=== PATIENT | female | born 2000 | race African-American/Black ===

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

== ENCOUNTER 2020-03-07 11:10 | Day surgery (SDC) | payer OTHER ==
[2020-03-07 12:01] VITALS: BMI 31.4
--- NOTE | 2020-03-07 12:10 | PDOC.FPRHP ---
- History of Present Illness Chief Complaint: Elevated Blood Pressure, Vision changes History of Present Illness: Pt is a 19 yo @ 29.3 wks (JOE 05/19/2020) by 12.6 wk US who presents due to elevated blood pressure at home - Allergies/Adverse Reactions Allergies Allergy/AdvReac Type Severity Reaction Status Date / Time No Known Allergies Allergy Verified 03/07/20 11:52 - Home Medications Medication Instructions Recorded Confirmed Type Ferrous Sulfate [Feosol] 325 mg PO BID-WM #60 tab 10/05/18 03/07/20 Rx Vitamin 1 tablet PO DAILY #30 tab 10/05/18 03/07/20 Rx Aspirin [Ecotrin Low Strength] 81 mg PO DAILY 03/07/20 03/07/20 History - History PMHx: Fibroadenoma of bilateral breasts PSHx: Bilateral Lumpectomy FHx: Non-contributory Social: No alcohol, tobacco, or recreational drugs - Review of Systems Eyes: reports: vision changes Neurological: reports: other (headache) - Vital signs BP: 137/82 HR: 98 RR: [] Tmax: 98.0 Pox: []% on [] Wt: 96.615 kg FMR H&P: Results - Labs Result Diagrams: 03/07/20 12:52 03/07/20 12:52 FMR H&P: Upper Level - Plan Date/Time: 03/07/20 1210 I, [], have evaluated this patient and agree with findings/plan as outlined by merchandising internship resident. Pertinent changes/additions are listed here.
[2020-03-07] MEDS ORDERED: hydrALAZINE 20 MG/ML VIAL SLOW IVP PRN (12:22)
[2020-03-07 13:07] LABS: #Lymphocytes 1.8 thou/uL (1.20-3.40); #Monocytes 0.7 thou/uL (0.11-0.59); #Neutrophils 6.3 thou/uL (1.40-6.50); %Basophils 0.1 % (0.0-1.0); %Eosinophils 0.4 % (0.0-10.0); %Lymphocytes 20.7 % (28.0-48.0); %Monocytes 7.3 % (0.0-4.0); %Neutrophils 71.6 % (31.0-61.0); Hemoglobin 9.7 g/dL (12.0-16.0); Mean Corpuscular HGB CONC 34.3 g/dL (32.0-36.0); Mean Corpuscular Hemoglobin 28.6 pg (25.0-35.0); Mean Corpuscular Volume 83.4 fL (78.0-98.0); Mean Platelet Volume 8.3 fL (7.4-10.4); Platelet Count 256 thou/uL (130-400); RBC Distribution Width 11.8 % (11.5-14.5); Red Blood Cell (RBC) Count 3.38 mill/uL (4.00-5.20); White Blood Cell (WBC) Count 8.8 thou/uL (4.8-10.8)
[2020-03-07 13:24] LABS: Anion Gap 13 mmol/L (10-20); BUN (Urea Nitrogen) 4 mg/dL (7.0-18.7); Calc. Creatinine Clearance 217 mL/min (70-130); Carbon Dioxide 22 mmol/L (22-29); Chloride 104 mmol/L (98-107); Estimated GFR-MDRD Greater than 90; Potassium 3.5 mmol/L (3.5-5.1); Sodium 135 mmol/L (136-145)
[2020-03-07 13:25] LABS: ALT (SGPT) Less than 7 U/L (8-55); AST (SGOT) 11 U/L (5-34); Albumin 3.4 g/dL (3.5-5.0); Alkaline Phosphatase 69 U/L (40-100); Bilirubin, Total Less than 0.2 mg/dL (0.2-1.2); Calcium 8.3 mg/dL (7.8-10.44); Globulin 3.8 g/dL (2.4-3.5); Glucose 76 mg/dL (70-105); Iron 27 ug/dL (50-170); Iron Binding Capacity, Total 498 mcg/dL (265-497); Protein, Total 7.2 g/dL (6.0-8.3)
--- NOTE | 2020-03-07 13:36 | ULT ---
Obstetric sonogram limited Sonographic biophysical profile score HISTORY: Preeclampsia. FINDINGS: Single intrauterine gestation in cephalic presentation. Cervix is closed and 4.9 cm. Grade 1 placenta is posterior. No evidence of previa. Heart motion at 131 bpm. Amniotic fluid index 7.5. Good tone, gross movements, and breathing movements were demonstrated at sonography. IMPRESSION : Sonographic biophysical profile score 8/8.
--- NOTE | 2020-03-07 15:11 | PDOC.FPROB ---
FMR OB H&P: HPI - History of Present Illness Chief Complaint: elevated bp, vision changes History of Present Illness: Pt is a 19 yo @ 29.3 wks (JOE 05/19/2020) by 12.6 wk US who presents due to elevated blood pressure at home combined with white spots/flashes that started this morning. She states the flashes are intermittent. Denies chest pain, shortness of breath, abdominal pain, urinary problems, edema, vaginal discharge, vaginal bleeding, or LOF. States she sometimes gets headaches, last one was 1 week ago. Patient states her home pressures with her chronic HTN are usually 130s-140s systolic with a few in the 160s. Primary Care Physician: ANUP Richardson FMR OB H&P: Current - Care : 2 Para: 1001 Gestational age: 29.3 weeks Due date: 05/20/2020 Dating Criteria: 12.5week - OB Labs Blood type: B RH: positive Antibody Screen: negative HIV: negative RPR: negative HepBsAg: negative Rubella: immune Gonorrhea: negative Chlamydia: negative 1 hour gtt: 2 hr: 75/128/128 H&H: 8.9/27.5 Platelets: 269 Additional labs: Hep C neg - First Trimester Ultrasound First trimester: LMP c/w 12.5 week sono - Anatomy Survey Anatomy survey: Anatmoy MF @22.5 weeks - WNLs; 41% EFW FMR OB H&P: History - Past Medical History PMH: cHTN, PreE in previous , Hx Chlamydia during , Short Interval between pregnancies - OB History OB History: Last 38 weeks , PreE - CANDLE MOLDER HAND History CANDLE MOLDER HAND History: none - Surgical History Sx History: Fibroadenoma removed 2 years ago, L breast - Social History Social History: no smoking, alcohol or drug use - Family History Family History: HTN FMR OB H&P: Medications - Current Home Medications: Medication Instructions Recorded Confirmed Type Ferrous Sulfate [Feosol] 325 mg PO BID-WM #60 tab 10/05/18 03/07/20 Rx Vitamin 1 tablet PO DAILY #30 tab 10/05/18 03/07/20 Rx Aspirin [Ecotrin Low Strength] 81 mg PO DAILY 03/07/20 03/07/20 History Allergies/Adverse Reactions: Allergies Allergy/AdvReac Type Severity Reaction Status Date / Time No Known Allergies Allergy Verified 03/07/20 11:52 FMR OB H&P: ROS - Review of Systems General: denies: fever/chills, weight/appetite/sleep changes Eyes: reports: vision changes, floaters. denies: eye pain ENT: denies: nasal congestion, rhinorrhea Cardiovascular: denies: chest pain, palpitation Respiratory: denies: cough, shortness of breath Gastrointestinal: denies: abdominal pain, indigestion Genitourinary (Female): denies: incontinence, dysuria Musculoskeletal: denies: pain, stiffness Neurologic: denies: numbness, syncope Integumentary: denies: itching, rash Breast: denies: lumps, bumps Endocrine: denies: cold intolerance, heat intolerance Hematologic/Lymphatic: denies: prolonged or excessive bleeding, enlarged lymph nodes Psychological: denies: depression, anxiety FMR OB H&P: Vital Signs - Maternal Vital signs: 129/82mmhg, FMR OB H&P: Physical Exam - Physical Exam General: NAD HEENT: normocephalic and atraumatic, PERRLA, EOMI Neck: supple, FROM Breast: symmetric, non-tender Heart: RRR, normal S1/S2, no murmurs/rubs/gallops General: CTAB, no respiratory distress, no wheezing Abdomen: soft, gravid, non-tender Musculoskeletal: normal gait and station, FROM in all four extremities Neurological: sensation to pain,touch and proprioception grossly normal, no focal deficit Skin: no rash, good tugor Lymphatic: no unusual bruising or bleeding, no purpura Psychiatric: intact recent and remote memory, good judgement and insight, normal mood and affect FMR OB H&P: Results - Labs Lab results: Laboratory Results - last 24 hr 03/07/20 03/07/20 03/07/20 12:52 12:52 12:52 WBC 8.8 RBC 3.38 L Hgb 9.7 L Hct 28.2 L MCV 83.4 MCH 28.6 MCHC 34.3 RDW 11.8 Plt Count 256 MPV 8.3 Neutrophils % 71.6 H Lymphocytes % 20.7 L Monocytes % 7.3 H Eosinophils % 0.4 Basophils % 0.1 Neutrophils # 6.3 Lymphocytes # 1.8 Monocytes # 0.7 H Eosinophils # 0.0 Basophils # 0.0 Sodium 135 L Potassium 3.5 Chloride 104 Carbon Dioxide 22 Anion Gap 13 BUN 4 L Creatinine 0.63 Estimated GFR (MDRD) Greater than 90 Glucose 76 Calcium 8.3 Iron 26 L 27 L TIBC 498 H % Saturation 5 L Ferritin Total Bilirubin Less than 0.2 L AST 11 ALT Less than 7 L Alkaline Phosphatase 69 Serum Total Protein 7.2 Albumin 3.4 L Globulin 3.8 H Albumin/Globulin Ratio 0.9 L U Random Total Protein Urine Creatinine 03/07/20 03/07/20 03/07/20 12:53 13:36 13:36 WBC RBC Hgb Hct MCV MCH MCHC RDW Plt Count MPV Neutrophils % Lymphocytes % Monocytes % Eosinophils % Basophils % Neutrophils # Lymphocytes # Monocytes # Eosinophils # Basophils # Sodium Potassium Chloride Carbon Dioxide Anion Gap BUN Creatinine Estimated GFR (MDRD) Glucose Calcium Iron TIBC % Saturation Ferritin 2.35 L Total Bilirubin AST ALT Alkaline Phosphatase Serum Total Protein Albumin Globulin Albumin/Globulin Ratio U Random Total Protein Less than 10 Urine Creatinine 67.57 FMR OB H&P: A/P Disposition: Pt is a 19 yo @ 29.3 wks (JOE 05/19/2020) by 12.6 wk US who presents due to elevated blood pressure at home combined with vision changes. Chronic HTN r/o PreEclampsia Hx of PreE in first - Home pressure today 168/84, here pressures in 130s with two in the 140s systolic - Urine Pr/Cr negative - CMP wnl - vision changes improved, no other severe features - d/c with continued home BP log and follow up within next week, strict ED return precautions - continue aspirin Third Trimester - reassuring FHTs - BPP 11/21 - MFM recommended f/u as clinically indicated Iron Def Anemia Hgb 9.7 Iron studies indicate iron def anemia - recommend setting up outpatient iron infusion - continue iron PO Hx Chlamydia 1st trimester - NICOLE negative Discussion: Date/Time: 03/07/20 1510 This H&P was discussed with Dr. Weston who agrees with the above documentation and plan. Addendum - Attending - Attending Attestation Date/Time: 03/08/20 0836 I personally evaluated the patient and discussed the management with Dr. Rivas. I agree with the History, Examination, Assessment and Plan documented above with any addition or exceptions noted below. Normal labs. Normal BP. D/C home.
== END 2020-03-07 14:28 | disposition home health service (06) ==
LOC: L&D/OP 11:10
PROVIDERS: ATTEND Family Medicine
DX: O10.913 Unspecified pre-existing hypertension complicating pregnancy, third trimester (principal); O99.891 Other specified diseases and conditions complicating pregnancy; H53.8 Other visual disturbances; O99.013 Anemia complicating pregnancy, third trimester; D50.9 Iron deficiency anemia, unspecified; Z3A.29 29 weeks gestation of pregnancy; Z79.82 Long term (current) use of aspirin; Z86.19 Personal history of other infectious and parasitic diseases
CPT/HCPCS: 36415; 76819; 80053; 82570; 82728; 83540; 83550; 84156; 85025; 99284

== ENCOUNTER 2020-03-30 13:51 | Day surgery (SDC) | payer OTHER ==
[2020-03-30 14:13] VITALS: BMI 32.5
--- NOTE | 2020-03-30 14:55 | PDOC.FPROB ---
FMR OB H&P: HPI - History of Present Illness Chief Complaint: elevate BP History of Present Illness: 19yo @ 32.5wks w/ hx of cHTN and pre-E in prior presents from clinic due to elevated BP. At clinic her pressures were 164/89 and 153/113. Pt takes her BP at home and states it has been 140s-150s/ 80s-90s. Denies GARSIA, change in vision, dizziness, N/V, edema, CP, SOB. Admits RUQ pain on occasion, stating this is where she feels baby kick her most often. Has been taking her daily medications: aspirin, iron, PNV. +FM, denies LOF, vaginal bleeding, vaginal discharge. Primary Care Physician: PEEWEE Richardson FMR OB H&P: Current - Care : 2 Para: 1 Gestational age: 32.5 Due date: 05/20/20 Dating Criteria: LMP c/w 12.5wk sono Course/Complications: cHTN, KYLIE, short IPI - OB Labs Blood type: B RH: positive Antibody Screen: negative HIV: negative RPR: negative HepBsAg: negative Rubella: immune Gonorrhea: negative Chlamydia: negative 1 hour gtt: 2 hr: 75/128/128 H&H: 9.1/26.5 on 03/22 Platelets: 280 on 03/22 FMR OB H&P: History - Past Medical History PMH: cHTN, KYLIE, preE in previous preg, short IPI - OB History OB History: @ 38wks, preE - CAPSULE INSPECTOR History CAPSULE INSPECTOR History: none - Surgical History Sx History: fibroadenoma removed 2 years ago, L breast - Social History Social History: no T/A/D - Family History Family History: mom: as above, all other negative FMR OB H&P: Medications - Current Home Medications: Medication Instructions Recorded Confirmed Type Ferrous Sulfate [Feosol] 325 mg PO BID-WM #60 tab 10/05/18 03/07/20 Rx Vitamin 1 tablet PO DAILY #30 tab 10/05/18 03/07/20 Rx Aspirin [Ecotrin Low Strength] 81 mg PO DAILY 03/07/20 03/07/20 History Allergies/Adverse Reactions: Allergies Allergy/AdvReac Type Severity Reaction Status Date / Time No Known Allergies Allergy Verified 03/30/20 14:14 FMR OB H&P: ROS - Review of Systems General: denies: fever/chills Eyes: denies: vision changes ENT: denies: nasal congestion, sore throat Cardiovascular: denies: chest pain, edema Respiratory: denies: cough, congestion, shortness of breath Gastrointestinal: denies: abdominal pain, nausea, vomiting Genitourinary (Female): denies: dysuria, vaginal discharge, vaginal bleeding, contractions Musculoskeletal: denies: pain, swelling Neurologic: denies: syncope, headache Integumentary: denies: rash Endocrine: denies: polyuria Hematologic/Lymphatic: denies: prolonged or excessive bleeding FMR OB H&P: Vital Signs - Maternal Vital signs: BP 138/88, HR 81 - Heart Tones Baseline: 140 Variability: moderate Acceleration: present Deceleration: absent Category: category 1 [place] contractions every: none FMR OB H&P: Physical Exam - Physical Exam General: NAD, awake, alert and oriented HEENT: normocephalic and atraumatic, EOMI, no scleral icterus, grossly normal vision, grossly normal hearing Neck: supple, FROM Heart: RRR, normal S1/S2, no murmurs/rubs/gallops, pulses present, no edema General: CTAB, no respiratory distress, good air movement Abdomen: soft, gravid, non-tender Musculoskeletal: pulses present, no atrophy Neurological: DTR +1, no clonus, no focal deficit Skin: no rash, capillary refill <2 seconds, no jaundice Lymphatic: no unusual bruising or bleeding Psychiatric: intact recent and remote memory, normal mood and affect FMR OB H&P: A/P Discussion: Date/Time: 03/30/20 1451 Pt is a 19 yo @ 32.5 wks by 12.5 wk US who presents due to elevated blood pressure at the clinic cHTN r/o PreEclampsia - hx of preE in prior - BP in clinic 164/89, 153/113 - BP here 138/88, asymptomatic - Urine Pr/Cr: Protein <10 - CMP LFT and BUN/Cr WNL - US: BPP 8/8, COLLEEN 6.3, vertex 32.2wks, HR 157 -radiologist read US as oligohydramnios. He stated that he uses a nomogram that uses gestational age and COLLEEN. According to this, the patient was less than the 5th percentile for her gestational age so she met criteria for oligo. He did not agree with ACOG definition of oligohydramnios. - continue home BP log, continue aspirin - needs outpatient f/u with mBPP next week Third Trimester - FHT: Cat 1, 140/mod dameon/+accel, no decel - continue routine outpatient f/u Iron Def Anemia - H/H - recommend setting up outpatient iron infusion- can f/u with her PCP to discuss further - continue iron PO This H&P was discussed with Dr. Arciniega and Dr. Avina who agree with the above documentation and plan. Addendum - Attending - Attending Attestation Date/Time: 03/31/20 3476 I personally evaluated the patient and discussed the management with the team. I agree with the History, Examination, Assessment and Plan documented above with any addition or exceptions noted below. No severe symptoms. After > 2 hours monitoring all BP's in 140's at worst, which is controlled for cHTN. Reassuring APT, note above reviewed about oligo. I reviewed images and SDP > 2 and I believe a couple pockets undercalled. ER warnings, follow up in clinic with repeat APT within a week, and home bp's.
[2020-03-30] MEDS ORDERED: hydrALAZINE 20 MG/ML VIAL SLOW IVP PRN (15:22)
[2020-03-30 15:45] LABS: #Monocytes 0.8 thou/uL (0.11-0.59); #Neutrophils 5.7 thou/uL (1.40-6.50); %Basophils 0.3 % (0.0-1.0); %Eosinophils 0.4 % (0.0-10.0); %Monocytes 9.6 % (0.0-4.0); %Neutrophils 66.8 % (31.0-61.0); Hemoglobin 9.2 g/dL (12.0-16.0); Mean Corpuscular HGB CONC 33.9 g/dL (32.0-36.0); Mean Corpuscular Hemoglobin 28.1 pg (25.0-35.0); Mean Corpuscular Volume 82.7 fL (78.0-98.0); Mean Platelet Volume 8.4 fL (7.4-10.4); Platelet Count 243 thou/uL (130-400); RBC Distribution Width 12.2 % (11.5-14.5); Red Blood Cell (RBC) Count 3.26 mill/uL (4.00-5.20); White Blood Cell (WBC) Count 8.5 thou/uL (4.8-10.8)
--- NOTE | 2020-03-30 15:53 | ULT ---
Please see the separately dictated, concurrently performed biophysical profile for details concerning the limited obstetrical evaluation.
--- NOTE | 2020-03-30 15:53 | ULT ---
LIMITED OBSTETRICAL ULTRASOUND FOR BIOPHYSICAL PROFILE INDICATION: Evaluate BPP and growth TECHNIQUE: Grayscale, M-mode Doppler, color Doppler and spectral Doppler images were obtained. Biophy sical profile was submitted by the critical power install technician. Imaging is focused on the clinical indication. COMPARISON: Prior exam dated March 07, 2020 GESTATION: Number of gestations: Single. Presentation: Cephalic. heart rate: 147 bpm. Placental location: Fundal and to the left Previa: No evidence for previa. Cervical length: Not visualized COLLEEN: 6.3 cm. Biophysical profile: tone: 2 out of 2. breathin out of 2 movements: 2 out of 2 Amniotic fluid level: 2 out of 2 The biparietal diameter measured 8.14 cm giving estimated gestational age of 32 weeks and 5 days (42n d percentile). The head circumference measures 29.61 cm giving estimated gestational age of 32 weeks and 5 days. (15 th percentile). The abdominal circumference measured 20.57 cm giving estimated gestational age of 32 weeks and 4 days (46 percentile). The femoral length was 6.18 cm giving estimated gestational age of 32 weeks and 0 days (21st percenti le). The estimated weight is 1978 g (32nd percentile). The average gestational age by ultrasound is 32 weeks and 2 days with estimated due date of May 23, 2020. The estimated clinical age is 32 weeks and 5 days with estimated due date of May 20, 2020. The maternal anatomy was not assessed. The uterus and adnexa were not evaluated. IMPRESSION: 1. Biophysical profile of 8 out of 8. 2. Oligohydramnios
[2020-03-30 16:13] LABS: ALT (SGPT) Less than 7 U/L (8-55); AST (SGOT) 14 U/L (5-34); Albumin 3.1 g/dL (3.5-5.0); Alkaline Phosphatase 87 U/L (40-100); Anion Gap 12 mmol/L (10-20); BUN (Urea Nitrogen) 4 mg/dL (7.0-18.7); Bilirubin, Total 0.2 mg/dL (0.2-1.2); Calc. Creatinine Clearance 214 mL/min (70-130); Calcium 8.5 mg/dL (7.8-10.44); Carbon Dioxide 23 mmol/L (22-29); Chloride 103 mmol/L (98-107); Globulin 3.7 g/dL (2.4-3.5); Glucose 82 mg/dL (70-105); Potassium 3.9 mmol/L (3.5-5.1); Protein, Total 6.8 g/dL (6.0-8.3); Sodium 134 mmol/L (136-145)
[2020-03-30 16:39] LABS: Creatinine, Urine 105.89 mg/dL (47-110); Protein, Urine Random Quant Less than 10 mg/dL (1-14)
== END 2020-03-30 17:19 | disposition home or self-care (01) ==
LOC: L&D/OP 13:51
PROVIDERS: ATTEND Emergency Medicine
DX: O10.913 Unspecified pre-existing hypertension complicating pregnancy, third trimester (principal); O99.013 Anemia complicating pregnancy, third trimester; D50.9 Iron deficiency anemia, unspecified; O41.03X0 Oligohydramnios, third trimester, not applicable or unspecified; Z3A.32 32 weeks gestation of pregnancy; Z79.899 Other long term (current) drug therapy
CPT/HCPCS: 36415; 76815; 76819; 80053; 82570; 84156; 85025; 99283

== ENCOUNTER 2020-04-28 13:05 | Inpatient (IN) | payer OTHER ==
[2020-04-28] MEDS ORDERED: hydrALAZINE 20 MG/ML VIAL SLOW IVP PRN ×2 (13:26→19:44)
--- NOTE | 2020-04-28 13:31 | PDOC.FPROB ---
FMR OB H&P: HPI - History of Present Illness Chief Complaint: high BPs Indentification: 19 yo at 36.6 wga by 12.6 week sono History of Present Illness: Patient sent from clinic because she has been having a headache x3 days and elevated BPs, higher than her usual range at 155/95. She had also missed her monitoring appointments over the last two weeks, so she was sent here for testing. Upon arrival patient is complaining of suprapubic abd ominal pain and a dull ache in her vagina. She also has been having more vaginal discharge that is kind of clear like urine but has been going on for about a month. Had increased abdominal pain last night that was intermittent and painful for about 2 hours. Primary Care Physician: PEEWEE Richardson FMR OB H&P: Current - Care : 2 Para: 1001 Gestational age: 36.6 Due date: 05/20/2020 Dating Criteria: 12 wk sono Course/Complications: chronic HTN short interval Hx of pre-eclampsia, on ASA Poor follow up in 3T Chlamydia in 1T w/ NICOLE neg - OB Labs Blood type: B RH: positive Antibody Screen: negative HIV: negative RPR: negative HepBsAg: negative Rubella: immune Gonorrhea: negative Chlamydia: positive (w/ NICOLE neg) Pap Smear: N/A 3 hour GTT: 2 hr GTT: 75/128/128 GBS: negative H&H: 9.2 on 03/30 Platelets: 243 on 03/30 Additional labs: Hgb electrophoresis Normal Hep C negative FMR OB H&P: History - Past Medical History PMH: chronic HTN - OB History OB History: x1, with preeclampsia - C 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 - Family History Family History: 2 siblings: noncontributory FMR OB H&P: Medications - Current Home Medications: Medication Instructions Recorded Confirmed Type Ferrous Sulfate [Feosol] 325 mg PO BID-WM #60 tab 10/05/18 04/28/20 Rx Vitamin 1 tablet PO DAILY #30 tab 10/05/18 04/28/20 Rx Aspirin [Ecotrin Low Strength] 81 mg PO DAILY 03/07/20 04/28/20 History Allergies/Adverse Reactions: Allergies Allergy/AdvReac Type Severity Reaction Status Date / Time No Known Allergies Allergy Verified 04/28/20 13:35 FMR OB H&P: ROS - Review of Systems General: denies: fever/chills, fatigue Eyes: denies: vision changes, scotomas, floaters ENT: denies: rhinorrhea, sore throat Cardiovascular: denies: chest pain, edema Respiratory: denies: cough, shortness of breath Gastrointestinal: reports: abdominal pain, cramping. denies: nausea, vomiting Genitourinary (Female): reports: vaginal discharge, vaginal pressure. denies: dysuria, hematuria, vaginal bleeding, contractions Musculoskeletal: denies: pain, swelling Neurologic: denies: syncope, weakness Integumentary: denies: itching, rash Hematologic/Lymphatic: denies: prolonged or excessive bleeding Psychological: denies: depression, anxiety FMR OB H&P: Vital Signs - Maternal Vital signs: BP 150/95, 162/95 HR 83 SpO2% 98% - Heart Tones Baseline: 130 (reactive) Variability: moderate Acceleration: present (x2) Deceleration: absent Category: category 1 [place] contractions every: 3-4 min FMR OB H&P: Physical Exam - Physical Exam General: NAD, awake, alert and oriented HEENT: normocephalic and atraumatic, PERRLA, conjunctiva clear, no scleral icterus, grossly normal vision, grossly normal hearing Neck: supple, trachea midline Chest: non-tender to palpation Heart: RRR, normal S1/S2 (2/6 systolic murmur) General: CTAB, no respiratory distress Abdomen: soft, gravid, non-tender Musculoskeletal: normal gait and station, pulses present, FROM in all four extremities Neurological: DTR +1 (in upper/lower extremities) Skin: no rash, good tugor Lymphatic: no unusual bruising or bleeding Psychiatric: intact recent and remote memory, normal mood and affect - Pelvic Exam Vulva: normal hair distribution Cervix: no masses, no lesions SVE: 50/-3 Membranes: intact, no pooling on exam Presentation: vertex by sono Estimated Weight: 7 lbs FMR OB H&P: A/P Disposition: observe on L&D for 1-2 hours, awaiting labs to result. Discussion: Date/Time: 04/28/20 1330 19 yo at 36.6 wga by 12 wk sono Pre-eclampsia rule out in setting of cHTN Headache - monitor BPs - CBC, CMP, urine protein/creatinine - Tylenol for headache Labor rule out - 2/50/-3 on exam - lukasz 3-4 min, not painful to patient - PO hydration to see if contractions decrease - repeat cervical check in 1-2 hours Iron deficiency anemia - CBC at 9.2 last time, if below 10 we will need iron infusion. Vaginal discharge - VP3 collected - UA collected by straight cath - no pooling on exam, normal COLLEEN, low suspicion for oligohydramnios Poor follow up in 3T - patient missed her monitoring appts past 2 weeks - NST reactive - BPP 8/8, COLLEEN 8.3 cm - Growth performed: EFW 2901 g, 40th percentile. Other complications: Short interval Hx of pre-eclampsia, on ASA Poor follow up in 3T Chlamydia in 1T w/ NICOLE neg This H&P was discussed with Dr. Smart, who agrees with the above documentation and plan. Signature: Haritha Richardson MD, PGY2 Addendum - Attending - Attending Attestation Date/Time: 04/28/20 1527 I personally evaluated the patient and discussed the management with Dr. Richardson I agree with the History, Examination, Assessment and Plan documented above with any addition or exceptions noted below. 19 yo female at 36.6 wks by 12.6 wk sono complicated by cHTN, short IPI, hx of preE with severe features, chlamydia infx, and incomplete care sent to triage for evaluation of persistently elevated BP above baseline. Patient also reports intermittent GARSIA x 3 days. Notes vaginal pain. Denies contractions. On monitoring fetus is reactive. +FM. Ctx q 2 to 4 mins. US reviewed. BPP 8/8. COLLEEN 8. [place] 40%. Fundal placenta. Cephalic. Labs WNL. No proteinuria. BP reviewed. Consistent 150/90s with 2 severe range pressures within 30 mins of each other. PO medication provided. 1. sIUP at 36.6 wks: Records reviewed. 2. cHTN: Patient now with elevated BP above normal baseline. Not on medications. Now with 2 (< 4 hours apart) severe range pressures. Normal labs. At this time patient likely has superimposed gHTN on top of cHTN. No need to proceed with delivery at this time but risk outweigh benefits of continuing to 39 wks. Would recommend delivery at 37 wks which is tomorrow. Would keep patient overnight and proceed with IOL in AM. 3. Ctx: Unsure if labor vs uterine irritablity vs false labor/[place]. Continue to monitor. Repeat SVE in 2 hours. Ana
[2020-04-28 13:40] VITALS: BMI 32.8
--- NOTE | 2020-04-28 14:17 | ULT ---
LIMITED OB ULTRASOUND AND NONSTRESS BIOPHYSICAL PROFILE: COMPARISON: 03/30/2020. FINDINGS: Number of gestation: Single. heart tones: 125 bpm. position: Vertex. Amniotic fluid index: 8.3 cm. biometry: BPD 8.77 cm, 35 weeks 3 days Head circumference 32.34 cm, 36 weeks 4 days Abdominal circumference 32.45 cm, 36 weeks 3 days Femur length 7.11 cm, 36.3 days Average age by sonography is 35 weeks, 6 days. Estimated weight is 2901 g +/- 429 g (estimated weight percentile 40th percentile). Nonstress biophysical profile: tone 2. breathing 2. movements 2. And neck fluid 2. Total score 8 out of 8. IMPRESSION: 1. Single gestation with heart tones. 2. Nonstress biophysical profile score 8 out of 8. 2. Persistent oligohydramnios. Transcribed Date/Time: 04/28/2020 2:39 PM
--- NOTE | 2020-04-28 14:20 | ULT ---
Please refer to Limited OB ultrasound report for details with regards to the biophysical profil e.
[2020-04-28] MEDS ORDERED: Acetaminophen 500 MG TAB PO SCH (14:30)
[2020-04-28 14:46] LABS: #Lymphocytes 1.7 thou/uL (1.20-3.40); #Monocytes 0.7 thou/uL (0.11-0.59); #Neutrophils 7.4 thou/uL (1.40-6.50); %Basophils 0.4 % (0.0-1.0); %Eosinophils 0.1 % (0.0-10.0); %Monocytes 7.3 % (0.0-4.0); %Neutrophils 75.3 % (31.0-61.0); Hemoglobin 9.2 g/dL (12.0-16.0); Mean Corpuscular HGB CONC 33.9 g/dL (32.0-36.0); Mean Corpuscular Hemoglobin 27.1 pg (25.0-35.0); Mean Corpuscular Volume 80.1 fL (78.0-98.0); Mean Platelet Volume 8.5 fL (7.4-10.4); Platelet Count 246 thou/uL (130-400); RBC Distribution Width 12.8 % (11.5-14.5); Red Blood Cell (RBC) Count 3.39 mill/uL (4.00-5.20); White Blood Cell (WBC) Count 9.9 thou/uL (4.8-10.8)
[2020-04-28 15:09] LABS: Bacteria/HPF None Seen HPF (None Seen); Bilirubin Negative (Negative); Blood, Urine 2+ (Negative); Clarity Clear (Clear); Glucose, Urine (Dipstick) Normal (Negative); Ketone, Urine Greater than 150 mg/dL (Negative); Leukocyte Negative Leu/uL (Negative); Nitrite Negative (Negative); Protein, Urine (Dipstick) 100 mg/dL (Neg-Trace); RBC/HPF Greater than 50 HPF (0-3); WBC/HPF 0-3 HPF (0-3); pH, Urine 6.5 (5.0-9.0)
[2020-04-28 15:12] LABS: ALT (SGPT) Less than 7 U/L (8-55); AST (SGOT) 14 U/L (5-34); Albumin 3.5 g/dL (3.5-5.0); Alkaline Phosphatase 117 U/L (40-100); Anion Gap 15 mmol/L (10-20); BUN (Urea Nitrogen) 6 mg/dL (7.0-18.7); Bilirubin, Total 0.3 mg/dL (0.2-1.2); Calc. Creatinine Clearance 213 mL/min (70-130); Calcium 8.4 mg/dL (7.8-10.44); Carbon Dioxide 21 mmol/L (22-29); Chloride 105 mmol/L (98-107); Globulin 3.4 g/dL (2.4-3.5); Glucose 68 mg/dL (70-105); Potassium 3.9 mmol/L (3.5-5.1); Protein, Total 6.9 g/dL (6.0-8.3); Sodium 137 mmol/L (136-145)
[2020-04-28] MEDS ORDERED: Iron, Sodium Ferric Gluconate 250 MG in Sodium Chloride 0.9% 100 ML IVPB SCH (15:15)
[2020-04-28] MEDS ORDERED: NIFEdipine 10 MG CAP ONE ×2 (15:15→17:16)
[2020-04-28 15:24] LABS: Creatinine, Urine Greater than 430.00 mg/dL (47-110); Protein, Urine Random Quant 47 mg/dL (1-14)
--- NOTE | 2020-04-28 15:42 | PDOC.BPN ---
<Kathleen Richardson - Last Filed: 04/28/20 15:41> - Brief Progress Note Encounter Date: 04/28/20 Encounter Time: 15:30 Patient with 2 severe range BP in a row. Oral nifedipine given Protein/creatinine ratio 0.1. CMP wnl. CBC w/ hgb 9.2. Continue to monitor for minimum of 4 hours for BP. <Tonja Smart - Last Filed: 04/28/20 16:01> Addendum - Attending - Attending Attestation Date/Time: 04/28/20 1600 I personally evaluated the patient and discussed the management with Dr. Richardson I agree with the History, Examination, Assessment and Plan documented above with any addition or exceptions noted below. Would continue monitoring will IOL at 37 wks due to superimposed gHTN/preE spectrum. Awaiting repeat SVE to determine labor status. Ana
--- NOTE | 2020-04-28 16:38 | PDOC.BPN ---
<Kathleen Richardson - Last Filed: 04/28/20 16:40> - Brief Progress Note Encounter Date: 04/28/20 Encounter Time: 16:35 Patient with worsened headache now a 5/10 and before was a 3/10. She got 1 g Tylenol at 1442. Has not had more severe range BPs since nifedipine was given. Cervix unchanged 250/-3, posterior. Pt's pain w/ contractions is about 4 out of 10. Cat 1 strip. Contractions 2-4 min with some uterine irritability intermittently. GC/C swab collected on this check. <Tonja Smart - Last Filed: 04/30/20 11:23> - Brief Progress Note Now with headache and scotma with 2 severe range BP 4 hours apart. Now with superimposed preeclampsia with severe features. Admit. Start IOL with miso. Start mag. Place on seizure precautions. Treat severe range BP as needed. Ana
--- NOTE | 2020-04-28 16:50 | PDOC.BPN ---
<Kathleen Richardson - Last Filed: 04/28/20 16:49> - Brief Progress Note BP 164/85 and 162/82 in a row Pt now diagnosed with cHTN with superimposed preeclampsia with severe features in setting of unrelenting headache. Plan to admit to L&D. Discussed with Dr. Smart who agrees. Start induction with cytotec given Mcclain score of 3 on last check. Magnesium to be started now. <Tonja Smart - Last Filed: 04/30/20 11:39> Addendum - Attending - Attending Attestation Date/Time: 04/28/20 4715 I personally evaluated the patient and discussed the management with Dr. Richardson I agree with the History, Examination, Assessment and Plan documented above with any addition or exceptions noted below. Now meets criteria for superimposed preE with severe features. Will no longer admit for monitoring but will now admit for IOL. Unfavorable cervix. Place miso. Start mag. Olga LidiaMD
[2020-04-28] MEDS ORDERED: Calcium Gluc 4.6 MEQ/10 ML (100 MG/ML) SLOW IVP PRN (16:52)
[2020-04-28] MEDS ORDERED: Butorphanol Tartrate 1 MG/ML VIAL SLOW IVP PRN (16:52)
[2020-04-28] MEDS ORDERED: Ondansetron PF 4 MG/2 ML Vial IVP PRN (16:52)
[2020-04-28] MEDS ORDERED: Promethazine HCl 25 MG/ML VIAL IM PRN (16:52)
[2020-04-28] MEDS ORDERED: Acetaminophen 500 MG TAB PO PRN (16:52)
[2020-04-28] MEDS ORDERED: Magnesium Sulfate 20 gm/500 ml 20 GM/500 ML BAG ONE (16:58)
[2020-04-28] MEDS ORDERED: Magnesium Sulfate 20 GM/WATER 500 ML BAG IVPB SCH (17:00)
[2020-04-28] MEDS: hydrALAZINE 20 MG/ML VIAL SLOW IVP PRN (17:11)
[2020-04-28] MEDS: Lactated Ringer's 1,000 ML IV SCH (17:15)
[2020-04-28] MEDS: Misoprostol 100 MCG TAB VAG SCH (18:39)
--- NOTE | 2020-04-28 21:01 | PDOC.BPN ---
- Brief Progress Note Encounter Date: 04/28/20 Encounter Time: 20:55 PreE mag check S: Patient doing well. Denies CP, RUQ abdominal pain, Dyspnea. Reports good urine OP and no other concerns at this time. O:VS: Most recent BP 148 systolic, previously had 3 systolic BP 160-164 and has so far received nifedipine 10 mg X2 and hydralazine 5 mg X1. UOP: >30 ml/hr, adequate PE: Cardiac: RRR, NO MRG Lungs: CTAB Abdomen: Gravid uterus, no RUQ pain Extremities: No edema in extremities Neuro: A/OX4, DTR 2+ on LE, no clonus SVE (per nurse): /-3 FHT: Baseline 120, mod variability, ctx q 3-5 mins cat 1 strip A: 19 yo @ 36.6 wks presenting for PreE w/ severe features and mIOL doing well thus far. P: continue mag, labor induction SVE: /-3 @ 2029 per nurse FHT: Baseline 120, mod variability, ctx q 3-5 mins cat 1 strip Cytotec placed @ 1840, will recheck and reevaluate for cytotec repeat @ 2240 Consider Pitocin augmentation at next check Discussed with Dr. Weston, attending
--- NOTE | 2020-04-29 00:16 | PDOC.LDPN ---
Labor & Delivery Progress Note - Subjective Subjective: comfortable - Objective Abnormal vital signs: HTN SBP 130-140 since last check, highest SBP 150, DBP 80- 90 General: NAD SVE: 3050/-2 FHT: category 2, absent or minimal variables [place] contractions every: 4 mins Plan: continue plan of care, labor augmentation, pitocin for augmentation -: PreE mag check and labor check S: Patient doing well. Denies CP, RUQ abdominal pain, Dyspnea. Reports good urine OP and no other concerns at this time. O:VS: Most recent BP 150 systolic, has been in 130s, last severe pressures were in 160s documented previous note. UOP: 125 mL over 30 mins at time of check PE: Cardiac: RRR, NO MRG Lungs: CTAB Abdomen: Gravid uterus, no RUQ pain Extremities: No edema in extremities Neuro: A/OX4, DTR 2+ on LE, no clonus SVE: 50/-2 FHT: Baseline 120, min variability, ctx irregular cat 2 strip A: 19 yo @ 36.6 (-> 37 today) wks presenting for PreE w/ severe features and mIOL doing well thus far. P: continue mag, labor induction SVE: 50/-2 @ 2029 FHT: Baseline 120, mod variability, ctx irregular cat 2 strip Cytotec placed @ 1840 Start pitocin, titrate based on monitoring Discussed with Dr. Weston, attending
[2020-04-29] MEDS: Misoprostol 100 MCG TAB VAG SCH ×4 (00:49→08:56)
[2020-04-29] MEDS ORDERED: NS / Oxytocin 40 units/1000ml 1,000 ML IV PRN (01:17)
[2020-04-29] MEDS ORDERED: NS w/ Oxytocin 30 units 500 ML IVPB SCH (01:30)
[2020-04-29] MEDS ORDERED: NS w/ Oxytocin 30 units 500 ML IV PRN (01:34)
[2020-04-29 01:40] LABS: SARS-CoV-2 MS2 Positive; SARS-CoV-2 N Gene Negative; SARS-CoV-2 S Gene Negative; SARS-CoV-2 by NAA Not Detected (NotDetected); SARS-CoV-2 orf1ab Negative
[2020-04-29] MEDS: NS w/ Oxytocin 30 units 500 ML IVPB SCH ×2 (01:42→07:20)
[2020-04-29 02:41] LABS: HBSAg Index 0.22 S/CO (0-0.99); Hep B Surf Ag Non-Reactive S/CO (NonReactive)
--- NOTE | 2020-04-29 03:25 | PDOC.LDPN ---
Labor & Delivery Progress Note - Subjective Subjective: comfortable - Objective Abnormal vital signs: BP 120-130/60-70 General: NAD Uterine fundus: non tender SVE: /-2 FHT: category 1, variability present [place] contractions every: 4 mins Plan: continue plan of care, labor augmentation, pitocin for augmentation -: A: 19 yo @ 36.6 (-> 37 today) wks presenting for PreE w/ severe features and mIOL doing well thus far. P: continue mag, labor induction SVE: /-2 @ 2030, 0100, & 0300 FHT: Baseline 120, mod variability, ctx Q4mins cat 1 strip Cytotec placed @ 1840 Pitocin started @ 0100, now @ two, increase as tolerated Discussed with Dr. Weston, attending
[2020-04-29 04:36] LABS: Syphilis Antibody Nonreactive (Nonreactive)
[2020-04-29] MEDS ORDERED: Fentanyl 4 mcg/Bup 0.1% Cadd 100 ML ONE (04:39)
[2020-04-29] MEDS ORDERED: Fentanyl 100 MCG/2 ML VIAL ONE (04:54)
--- NOTE | 2020-04-29 05:33 | PDOC.LDPN ---
Labor & Delivery Progress Note - Subjective Subjective: comfortable (Epidural attempted but not placed just before check) - Objective Abnormal vital signs: 3 severes: 0100: DBP 101 and 108, 0530 SBP 164 with epidural attempt General: NAD FHT: category 1 [place] contractions every: q3-4 mins Plan: continue plan of care -: PreE mag check and labor check (mag check delayed 2/2 epidural attempt) S: Patient doing well. Endorses back pain and frustration with epidural attempt. Denies CP, RUQ abdominal pain, Dyspnea. Reports good urine OP and no other concerns at this time. O:VS: Most recent BP 140 systolic, has been in 130s besides one elevated to 164 while anesthesia in room and DBP 101 and 108 ~0130 UOP: 700 mL over 4 hrs PE: Cardiac: RRR, NO MRG Lungs: CTAB Abdomen: Gravid uterus, no RUQ pain Extremities: No edema in extremities Neuro: A/OX4, DTR 2+ on LE, no clonus SVE: 70/-2 FHT: Baseline 130, mod variability, ctx q3-4 cat 1 strip A: 19 yo @ 36.6 (-> 37 today) wks presenting for PreE w/ severe features and mIOL doing well thus far. P: continue mag, labor induction SVE: 350/-2 @ 2030, 0100, 0300 470/-2 @ 0545 FHT: Baseline 130, mod variability, ctx irregular cat 1 strip Cytotec placed @ 1840 Pitocin @ 6, titrate based on monitoring Discussed with Dr. Weston, attending
[2020-04-29] MEDS ORDERED: Lidocaine 1% (PF) 30 ML VIAL ONE (07:01)
--- NOTE | 2020-04-29 07:11 | PDOC.BPN ---
- Brief Progress Note /1 Patient feeling pressure/feeling like need to have BM. Temp 97.5 since pt was feeling "hot" recurrent early decels. Membranes intact on exam
--- NOTE | 2020-04-29 07:54 | PDOC.OPDEL ---
OB Operative/Delivery Note Delivery Dr/Surgeon: Dylan (continuity provider) Assist: Attending: Dr. Weston, med student [place] Garrison present Pre-Delivery Diagnosis: active labor, medically indicated induction Procedure/Post Delivery Dx: spontaneous vaginal delivery Weeks gestation: 37 (37.0 wga) Anesthesia: local (10 mL lidocaine for perineal repair) - Additional Findings/Plan Placenta delivered: spontaneous Repaired Obstetrical Laceration: 1st degree Estimated blood loss: QBL 50 mL Compilations/Other Findings: Pre-op Diagnosis: 1. Pre-Term intrauterine in labor 2. Chronic HTN with superimposed pre-eclampsia with severe features 3. Iron deficiency anemia in Post-op Diagnosis: 1. Early Term intrauterine , delivered 2. same as above 3. same as above 4. Precipitous delivery Indications: A 19 y/o female presented in latent labor and severe range BPs in setting of chronic HTN. Medically indicated induction pursued at 36.6 wga due to severe features with superimposed pre-eclampsia Delivery Note: This is a 19yo F @ 37.0 wks delivered a viable M at 0719. Following an antepartum course complicated by magnesium, acute hypertensive therapy, and failed epidural attempt, a vigorous male was delivered precipitously over an intact perineum in the occipitoanterior position. AROM bluntly performed with clear fluid just prior to delivery. Anterior Shoulder and then remainder of the body delivered. Nuchal cord x1. The head was held down and mouth and nares were bulb suctioned. Tactile stimulation provided. Cord clamped after delayed cord clamping and cut, and cord blood collected. Placenta delivered intact in the [place] presentation with a 3 vessel cord noted. Fundal massage was performed, and the fundus was firm. The cervix and vagina were inspected and found to have a deep 1st degree perineal laceration. Perineum was repaired with 2-0 chromic in the usual fashion with good approximation and hemostasis after a local anesthetic of 10 mL lidocaine was injected at site. went to nursery to be warmed due to concern for borderline low temp. Apgars were 8/9 at 1 & 5 minutes, respectively. Patient tolerated delivery well and stayed on L&D for pre-eclampsia care on IV magnesium. Plan to perform magnesium checks q4h and assess urine output regularly. Dr. Weston was present for the entire delivery. ATTENDING ADDENDUM: Agree w/ above. Post delivery plan: recovery in LICU (on magnesium for 24 hours s/p delivery)
[2020-04-29] MEDS ORDERED: Acetaminophen 500 MG TAB PO PRN (07:57)
[2020-04-29] MEDS ORDERED: Adacel (T-DAP) 0.5 ML SYRINGE IM ONE (08:00)
[2020-04-29] MEDS ORDERED: Bisacodyl 10 MG SUPP PR PRN (08:00)
[2020-04-29] MEDS ORDERED: Milk Of Magnesia 30 ML UDCUP PO PRN (08:00)
[2020-04-29] MEDS ORDERED: Benzocaine-Menthol 82.5 ML CAN TOP PRN (08:00)
[2020-04-29] MEDS ORDERED: Acetaminophen 500 MG TAB PO SCH (08:00)
[2020-04-29] MEDS ORDERED: Lanolin Ointment 7 GM TUBE TOP PRN (08:00)
[2020-04-29] MEDS ORDERED: diphenhydrAMINE 25 MG CAP PO PRN (08:00)
[2020-04-29] MEDS ORDERED: Preparation H Ointment 28 GM TUBE PR PRN (08:00)
[2020-04-29] MEDS ORDERED: NS w/ Oxytocin 30 units 500 ML IV SCH (08:30)
[2020-04-29] MEDS: Lactated Ringer's 1,000 ML IV SCH ×2 (08:56→12:27)
[2020-04-29] MEDS: Ferrous Sulfate 325 MG TAB PO SCH (08:57)
[2020-04-29] MEDS: Ibuprofen 800 MG TAB PO SCH ×2 (08:58→16:59)
[2020-04-29] MEDS: metroNIDAZOLE 500 MG TAB PO SCH ×2 (09:05→21:18)
[2020-04-29] MEDS: hydrALAZINE 20 MG/ML VIAL SLOW IVP PRN (10:21)
[2020-04-29] MEDS ORDERED: hydrALAZINE 20 MG/ML VIAL SLOW IVP SCH (11:00)
[2020-04-29] MEDS: Magnesium Sulfate 20 gm/500 ml 20 GM/500 ML BAG IVPB SCH ×2 (12:26→22:32)
[2020-04-29] MEDS: Prenatal Vitamin 1 TAB PO SCH (12:27)
[2020-04-29] MEDS: Docusate Calcium (SURFAK) 240 MG CAP PO SCH ×2 (12:27→21:18)
--- NOTE | 2020-04-29 12:44 | PDOC.BPN ---
<Kathleen Richardson - Last Filed: 04/29/20 12:41> - Brief Progress Note Encounter Date: 04/29/20 Encounter Time: 12:35 magnesium check S: Denies headache, vision changes, abdominal pain. Wants to know after 24 hrs of mag when she can go home. O: BPs earlier today in severe range and given 15 mg hydralazine along w/ oral labetalol. Since then, BP max 140/80. VSS. PEx: NAD, DTRs 2+ bilaterally Urine output: 350-375 mL/hr A/P: continue magnesium until 04/30 at 0730. Continue oral labetalol BID and treat prn w/ hydralazine.\ Recheck in 4 hours. <Tonja Smart - Last Filed: 04/30/20 11:27> - Brief Progress Note Stable. BP remain elevated above baseline. Continue BB for now but will switch to better antihypertensive once off mag. No evidence of mag tox at this time. Ana
--- NOTE | 2020-04-29 16:28 | PDOC.BPN ---
<Kathleen Richardson - Last Filed: 04/29/20 16:27> - Brief Progress Note Encounter Date: 04/29/20 Encounter Time: 16:30 magnesium check S: Reports mild headache. Denies vision changes, abdominal pain. Holding baby comfortably. O: Max BP since last check ~150/90 VSS. PEx: NAD, DTRs 2+ bilaterally Urine output: 300 mL/hr since 12:40. A/P: continue magnesium until 04/30 at 0730. Continue oral labetalol BID and treat prn w/ hydralazine. Tylenol now for headache. Recheck in 4 hours. <Tonja Smart - Last Filed: 04/30/20 11:30> - Brief Progress Note Has had good diuresis since delivery with 300 to 375 mL per hour for 7 hours. Not planning on breast feeding therefore will give 1 dose of IV lasix to help mobilize remainder of fluid. Continue mag for at least 24 hours after delivery. Continue to adjust antihypertensive for goal BP of < 140/90 and then continue to adjust outpatient for goal of 120/70. Now with known cHTN and 2 episodes of preE with severe. Need to discuss continued cardiovascular risk to patient with future pregnancies. Ana
[2020-04-29] MEDS ORDERED: Furosemide 20 MG/2 ML VIAL SLOW IVP SCH (17:15)
[2020-04-29] MEDS ORDERED: Labetalol 100 MG TAB PO SCH (21:00)
[2020-04-29] MEDS: Labetalol 100 MG TAB PO SCH (21:18)
--- NOTE | 2020-04-29 21:34 | PDOC.BPN ---
- Brief Progress Note Encounter Date: 04/29/20 Encounter Time: 21:34 PP magnesium check S: Reports mild headache. Denies vision changes, abdominal pain, dyspnea, chest pain. Feeling well overall O: Max BP since last check ~150/90 VSS. PEx: NAD Cardiac: RRR no MRG Lungs: CTAB Abdomen: nontender to palpation, + BS Neuro: DTRs 2+ bilaterally Urine output: >300 mL/hr since last check per nurse, 300 mL in bag at time of exam. A/P: continue magnesium until 04/30 at 0730. Continue oral labetalol BID and treat prn w/ hydralazine. Tylenol for headache. Recheck in 4 hours.
[2020-04-29 21:52] LABS: Chlamydia by PCR Not Detected (NotDetected); GC by PCR Not Detected (NotDetected)
[2020-04-30] MEDS: Ibuprofen 800 MG TAB PO SCH ×4 (00:40→21:09)
--- NOTE | 2020-04-30 01:17 | PDOC.BPN ---
- Brief Progress Note Encounter Date: 04/30/20 Encounter Time: 01:14 PP Magnesium Check S: Reports 5/10 mild headache. Denies vision changes, abdominal pain, dyspnea, chest pain. Feeling well overall. holding baby comfortably. O: Max BP since last check 162/90 X1, mainly in 140-150/80-90 PEx: NAD Cardiac: RRR no MRG Lungs: CTAB Abdomen: nontender to palpation, + BS Neuro: DTRs 2+ bilaterally Urine output: 475 mL / 4hrs with urine currently in bag A/P: continue magnesium until 04/30 at 0730. Continue oral labetalol BID and treat prn w/ hydralazine. Will give Lasix at this time, was not given at time of order but given severe with overall higher BP, will start with this tx Tylenol for headache. Recheck in 4 hours.
[2020-04-30] MEDS ORDERED: Furosemide 20 MG/2 ML VIAL SLOW IVP SCH (01:30)
--- NOTE | 2020-04-30 05:20 | PDOC.BPN ---
- Brief Progress Note Encounter Date: 04/30/20 Encounter Time: 05:18 S: Reports resolved headache. Denies vision changes, abdominal pain, dyspnea, chest pain. Feeling well overall. Holding baby comfortably. O: Max BP since last check 154/91 PEx: NAD Cardiac: RRR no MRG Lungs: CTAB Abdomen: nontender to palpation, + BS Neuro: DTRs 2+ bilaterally Urine output: 1500 mL / 4hrs A/P: continue magnesium until 04/30 at 0730. Continue oral labetalol BID and treat prn w/ hydralazine Continue to monitor VS
--- NOTE | 2020-04-30 06:36 | PDOC.PP ---
Post Progress Note Post Day #: 1 Subjective: feeling well. No concerns. Denies headache. Lasix given at 0100 and output of 1.1 L. Urine output adequate overnight. PO intake tolerated: yes Flatus: yes Ambulation: no Vital Signs (12 hours) Pulse BP 04/29/20 21:18 81 154/87 H Weight Weight 100.698 kg - Physical Examination General: NAD Cardiovascular: RRR (1/6 systolic murmur) Respiratory: clear to auscultation bilaterally, non-labored breathing Abdominal: lochia (downtrending), appropriately TTP Fundus firm & at: well below umbilicus Neurological: no gross focal deficits Psychiatric: A&Ox3, normal affect Result Diagrams: 04/30/20 06:43 04/28/20 14:37 Additional Labs: Post Labs Hep Bs Antigen Non-Reactive S/CO (NonReactive) 04/29/20 01:52 Blood Type B POSITIVE 04/29/20 01:52 - Assessment/Plan 19 yo G2 now P2002 delivered at 37.0 wga PPD #1 s/p NVSD, precipitous - pain well controlled - passing gas - postop hemoglobin stable - discontinue salazar when magnesium stopped chronic HTN, superimposed PreE w/ severe features - discontinue magnesium at 0730, 24 hr s/p delivery - d/c salazar. 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 Adjust BP meds tonight if indicated. Likely stays tonight and possibly home tomorrow. Addendum - Attending - Attending Attestation Date/Time: 04/30/20 1130 I personally evaluated the patient and discussed the management with Dr. Richardson I agree with the History, Examination, Assessment and Plan documented above with any addition or exceptions noted below. 19 yo female admitted for superimposed preE with severe features on cHTN now s/p on 04/29/20 at 0719 Patient remains well. No longer with frequent severe ranges BPs. Now off mag. 6L out yesterday. Will continue to monitor BP today. Adjust medications with goal BP of 140/90. Will need close outpatient monitoring. Discussed cardiovascular risk with continued pregnancies due to cHTN and preE with severe x2. Need to address contraception and would provide information for LRAC due to cardiovascular risk. Would suggest workup for secondary causes of cHTN in outpatient setting due to young age at dx if not already done. Ana
[2020-04-30 06:51] LABS: Hemoglobin 9.1 g/dL (12.0-16.0); Mean Corpuscular HGB CONC 31.2 g/dL (32.0-36.0); Mean Corpuscular Hemoglobin 25.3 pg (25.0-35.0); Mean Platelet Volume 8.4 fL (7.4-10.4); Platelet Count 279 thou/uL (130-400); RBC Distribution Width 13.1 % (11.5-14.5); White Blood Cell (WBC) Count 10.2 thou/uL (4.8-10.8)
[2020-04-30] MEDS: Prenatal Vitamin 1 TAB PO SCH (08:48)
[2020-04-30] MEDS: Ferrous Sulfate 325 MG TAB PO SCH ×3 (08:48→17:43)
[2020-04-30] MEDS: Labetalol 100 MG TAB PO SCH (08:50)
[2020-04-30] MEDS: Docusate Calcium (SURFAK) 240 MG CAP PO SCH ×2 (08:50→21:07)
[2020-04-30] MEDS ORDERED: Adacel (T-DAP) 0.5 ML SYRINGE IM ONE (10:16)
[2020-04-30] MEDS ORDERED: Milk Of Magnesia 30 ML UDCUP PO PRN (10:16)
[2020-04-30] MEDS ORDERED: Amlodipine 5 MG TAB PO SCH ×2 (10:16→10:30)
[2020-04-30] MEDS ORDERED: Preparation H Ointment 28 GM TUBE PR PRN (10:16)
[2020-04-30] MEDS ORDERED: hydrALAZINE 20 MG/ML VIAL SLOW IVP PRN (10:16)
[2020-04-30] MEDS ORDERED: diphenhydrAMINE 25 MG CAP PO PRN (10:16)
[2020-04-30] MEDS ORDERED: Bisacodyl 10 MG SUPP PR PRN (10:16)
[2020-04-30] MEDS ORDERED: Lanolin Ointment 7 GM TUBE TOP PRN (10:16)
[2020-04-30] MEDS ORDERED: NS w/ Oxytocin 30 units 500 ML IV SCH (10:45)
[2020-04-30] MEDS: Lactated Ringer's 1,000 ML IV SCH (12:56)
[2020-04-30] MEDS: metroNIDAZOLE 500 MG TAB PO SCH (12:56)
[2020-05-01] MEDS: Ibuprofen 800 MG TAB PO SCH (05:15)
--- NOTE | 2020-05-01 07:31 | PDOC.PP ---
Post Progress Note Post Day #: 2 Subjective: feeling well and looking fresh this morning. Went to bathroom without problem. PO intake tolerated: yes Flatus: yes Ambulation: yes Vital Signs (12 hours) Temp Pulse Resp BP Pulse Ox 05/01/20 05:10 98.2 F 85 18 145/73 H 05/01/20 00:50 98.3 F 73 18 159/83 H 04/30/20 21:00 98.3 F 89 18 135/75 99 Weight Weight 100.698 kg - Physical Examination General: NAD Cardiovascular: no m/r/g, RRR Respiratory: clear to auscultation bilaterally, non-labored breathing Abdominal: + bowel sounds, lochia (downtrending), appropriately TTP Fundus firm & at: well below umbilicus Neurological: no gross focal deficits Psychiatric: A&Ox3, normal affect Result Diagrams: 04/30/20 06:43 04/28/20 14:37 Additional Labs: Post Labs Hep Bs Antigen Non-Reactive S/CO (NonReactive) 04/29/20 01:52 Blood Type B POSITIVE 04/29/20 01:52 - Assessment/Plan 19 yo G2 now P2002 delivered at 37.0 wga PPD #1 s/p NVSD, precipitous - pain well controlled - meeting PP milestones - postop hemoglobin stable chronic HTN, superimposed PreE w/ severe features - s/p 24 hours of magnesium from delivery - amlodipine 5mg daily for BP Dispo: BP goal of 140/90. Continue amlodipine 5 mg at home. Monitor BP daily. Plan for follow up and close monitoring. Patient will call and schedule appt for Sunday since clinic is closed on Sunday. D/c today. Addendum - Attending - Attending Attestation Date/Time: 05/01/20 2996 I personally evaluated the patient and discussed the management with Dr. Richardson. I agree with the History, Examination, Assessment and Plan documented above with any addition or exceptions noted below.
[2020-05-01] MEDS: Ferrous Sulfate 325 MG TAB PO SCH (08:27)
[2020-05-01] MEDS: Docusate Calcium (SURFAK) 240 MG CAP PO SCH (08:27)
[2020-05-01 08:28] VITALS: BP 135/74
[2020-05-01] MEDS ORDERED: Prenatal Vitamin 1 TAB PO SCH (09:00)
[2020-05-01] MEDS ORDERED: Amlodipine 5 MG TAB PO SCH (09:00)
[2020-05-01 09:03] VITALS: TEMP 98.4
[2020-05-01] MEDS ORDERED: Ibuprofen 600 MG TAB PO SCH (14:00)
== END 2020-05-01 11:30 | disposition home or self-care (01) | DRG 806 ==
LOC: L&D/OP 13:05 → L&D 16:52 → 3SW 04-30 10:38
PROVIDERS: ADMIT Student in an Organized Health Care Education/Training Program; ATTEND Student in an Organized Health Care Education/Training Program
PROC: 10E0XZZ Delivery of Products of Conception, External Approach (ICD-10-PCS; principal; 2020-04-29)
PROC: 0HQ9XZZ Repair Perineum Skin, External Approach (ICD-10-PCS; 2020-04-29)
DX: O11.4 Pre-existing hypertension with pre-eclampsia, complicating childbirth (principal); O99.354 Diseases of the nervous system complicating childbirth; Z37.0 Single live birth; Z3A.36 36 weeks gestation of pregnancy; O70.0 First degree perineal laceration during delivery; O62.3 Precipitate labor; Z20.822 Contact with and (suspected) exposure to COVID-19; R51.9 Headache, unspecified; O99.02 Anemia complicating childbirth; D50.9 Iron deficiency anemia, unspecified; O69.81X0 Labor and delivery complicated by cord around neck, without compression, not applicable or unspecified; Z79.82 Long term (current) use of aspirin
CPT/HCPCS: 36415; 51702; 76815; 76819; 80053; 81001; 82570; 84156; 85025; 85027; 86780; 86850; 86900; 86901; 87340; 87480; 87491; 87510; 87591; 87635; 87660; 99285; J0360; J0595; J1940; J2590; J2916; J3475; J3490; U0003; U0005

== ENCOUNTER 2020-11-26 16:39 | Emergency (ER) | payer OTHER | END 2020-11-26 18:52 | disposition home or self-care (01) | LOC: ERS 16:39 | DX: M54.2 Cervicalgia (principal); I10 Essential (primary) hypertension; Z79.899 Other long term (current) drug therapy; V89.2XXA Person injured in unspecified motor-vehicle accident, traffic, initial encounter | CPT/HCPCS: 99283 ==

== ENCOUNTER 2021-01-03 16:33 | Emergency (ER) | payer OTHER ==
[2021-01-03 17:28] LABS: #Monocytes 0.6 thou/uL (0.11-0.59); #Neutrophils 5.3 thou/uL (1.40-6.50); %Basophils 0.1 % (0.0-1.0); %Eosinophils 0.2 % (0.0-10.0); %Lymphocytes 25.5 % (21.0-51.0); %Monocytes 7.4 % (0.0-10.0); %Neutrophils 66.7 % (42.0-75.0); Hemoglobin 10.7 g/dL (12.0-16.0); Mean Corpuscular HGB CONC 33.3 g/dL (32.0-36.0); Mean Corpuscular Hemoglobin 27.7 pg (27.0-31.0); Mean Corpuscular Volume 83.4 fL (78.0-98.0); Mean Platelet Volume 9.4 fL (7.4-10.4); Platelet Count 214 thou/uL (130-400); RBC Distribution Width 13.9 % (11.5-14.5); Red Blood Cell (RBC) Count 3.87 mill/uL (4.20-5.40)
[2021-01-03 17:53] LABS: ALT (SGPT) 11 U/L (8-55); AST (SGOT) 13 U/L (5-34); Albumin 3.6 g/dL (3.5-5.0); Alkaline Phosphatase 49 U/L (40-110); Anion Gap 13 mmol/L (10-20); BUN (Urea Nitrogen) 8 mg/dL (7.0-18.7); Bilirubin, Total 0.2 mg/dL (0.2-1.2); Calc. Creatinine Clearance 0 mL/min (70-130); Calcium 9.3 mg/dL (7.8-10.44); Carbon Dioxide 20 mmol/L (22-29); Chloride 105 mmol/L (98-107); Globulin 3.5 g/dL (2.4-3.5); Glucose 106 mg/dL (70-105); Lipase 13 U/L (8-78); Potassium 4.2 mmol/L (3.5-5.1); Protein, Total 7.1 g/dL (6.0-8.3); Sodium 134 mmol/L (136-145)
[2021-01-03 20:07] LABS: Pregnancy Test - Urine (BHCG) POSITIVE (Negative)
[2021-01-03 20:08] LABS: Pregu Control Background? CLEAR/WHITE (CLR/WHITE); Pregu Control Bar Appear? YES (CONTROL BAR); Specific Gravity 1.027 (1.002-1.036)
[2021-01-03 20:09] LABS: Bilirubin Negative (Negative); Blood, Urine Negative (Negative); Clarity Clear (Clear); Glucose, Urine (Dipstick) Normal (Negative); Ketone, Urine Negative (Negative); Leukocyte 500 Leu/uL (Negative); Mucous/LPF Rare LPF (<2+); Nitrite Negative (Negative); Protein, Urine (Dipstick) 20 mg/dL (Neg-Trace); RBC/HPF 0-3 HPF (0-3); Specific Gravity, Urine 1.027 (1.002-1.036); pH, Urine 6.5 (5.0-9.0)
[2021-01-03 20:18] LABS: Bacteria/HPF 3+ HPF (None Seen)
== END 2021-01-03 23:28 | disposition home or self-care (01) ==
LOC: ERS 16:33
DX: O23.41 Unspecified infection of urinary tract in pregnancy, first trimester (principal); Z3A.01 Less than 8 weeks gestation of pregnancy; Z79.899 Other long term (current) drug therapy; I10 Essential (primary) hypertension
CPT/HCPCS: 36415; 76856; 80053; 81003; 81015; 81025; 83690; 84702; 85025; 93976